=== PATIENT | male | born 1970 | race Caucasian/White ===

== ENCOUNTER 2021-07-29 09:30 | Emergency (ER) | payer OTHER ==
[2021-07-29] MEDS ORDERED: Ketorolac Tromethamine 30 MG/ML VIAL ONE (12:36)
[2021-07-29] MEDS ORDERED: Diazepam 10 MG/2 ML SYRINGE ONE (12:38)
== END 2021-07-29 13:00 | disposition home or self-care (01) ==
LOC: ERS 09:30
DX: M54.42 Lumbago with sciatica, left side (principal)
CPT/HCPCS: 72100; 96372; J1885; J3360

== ENCOUNTER 2021-07-31 20:45 | Inpatient (IN) | payer OTHER ==
[2021-07-31] MEDS ORDERED: Ondansetron PF 4 MG/2 ML Vial ONE (21:52)
[2021-07-31] MEDS ORDERED: Morphine 4 MG/ML VIAL ONE (21:52)
[2021-07-31 21:56] LABS: #Lymphocytes 1.8 thou/uL (1.20-3.40); #Monocytes 0.8 thou/uL (0.11-0.59); #Neutrophils 15.3 thou/uL (1.40-6.50); %Basophils 0.3 % (0.0-1.0); %Eosinophils 0.3 % (0.0-10.0); %Lymphocytes 9.8 % (21.0-51.0); %Monocytes 4.6 % (0.0-10.0); %Neutrophils 85.2 % (42.0-75.0); Hemoglobin 15.8 g/dL (14.0-18.0); Mean Corpuscular HGB CONC 33.6 g/dL (32.0-36.0); Mean Corpuscular Hemoglobin 30.3 pg (27.0-31.0); Mean Corpuscular Volume 90.2 fL (78.0-98.0); Mean Platelet Volume 6.8 fL (7.4-10.4); Platelet Count 211 thou/uL (130-400); RBC Distribution Width 11.9 % (11.5-14.5)
[2021-07-31 22:18] LABS: ALT (SGPT) 18 U/L (8-55); AST (SGOT) 11 U/L (5-34); Albumin 4.2 g/dL (3.5-5.0); Alkaline Phosphatase 82 U/L (40-110); Anion Gap 16 mmol/L (10-20); BUN (Urea Nitrogen) 18 mg/dL (8.4-25.7); Bilirubin, Total 0.7 mg/dL (0.2-1.2); Calc. Creatinine Clearance 0 mL/min (70-130); Calcium 8.9 mg/dL (7.8-10.44); Carbon Dioxide 23 mmol/L (22-29); Chloride 105 mmol/L (98-107); Globulin 2.7 g/dL (2.4-3.5); Glucose 136 mg/dL (70-105); Potassium 3.6 mmol/L (3.5-5.1); Protein, Total 6.9 g/dL (6.0-8.3); Sodium 140 mmol/L (136-145)
[2021-08-01] MEDS ORDERED: Acetaminophen 325 MG TAB PO PRN ×2 (01:00→01:40)
[2021-08-01] MEDS ORDERED: Ondansetron ODT 4 MG TAB SL PRN (01:00)
[2021-08-01] MEDS ORDERED: Ondansetron PF 4 MG/2 ML Vial IVP PRN ×2 (01:00→01:40)
[2021-08-01] MEDS: HYDROcodone/Acetaminophen 10/325 mg Tablet PO PRN ×4 (01:55→16:01)
[2021-08-01 04:04] VITALS: BMI 35.9
[2021-08-01] MEDS: Cyclobenzaprine 10 MG TAB PO SCH ×3 (07:36→21:07)
[2021-08-01 07:47] LABS: #Lymphocytes 2.5 thou/uL (1.20-3.40); #Monocytes 0.8 thou/uL (0.11-0.59); #Neutrophils 11.4 thou/uL (1.40-6.50); %Basophils 0.2 % (0.0-1.0); %Eosinophils 0.2 % (0.0-10.0); %Lymphocytes 16.9 % (21.0-51.0); %Monocytes 5.6 % (0.0-10.0); Hemoglobin 15.3 g/dL (14.0-18.0); Mean Corpuscular HGB CONC 33.8 g/dL (32.0-36.0); Mean Corpuscular Hemoglobin 31.2 pg (27.0-31.0); Mean Corpuscular Volume 92.3 fL (78.0-98.0); Platelet Count 226 thou/uL (130-400); RBC Distribution Width 12.3 % (11.5-14.5); Red Blood Cell (RBC) Count 4.91 mill/uL (4.70-6.10); White Blood Cell (WBC) Count 14.8 thou/uL (4.8-10.8)
[2021-08-01 08:00] LABS: Anion Gap 12 mmol/L (10-20); BUN (Urea Nitrogen) 18 mg/dL (8.4-25.7); Calc. Creatinine Clearance 147 mL/min (70-130); Calcium 9.2 mg/dL (7.8-10.44); Carbon Dioxide 28 mmol/L (22-29); Chloride 102 mmol/L (98-107); Glucose 100 mg/dL (70-105); Potassium 4.4 mmol/L (3.5-5.1); Sodium 138 mmol/L (136-145)
[2021-08-01] MEDS ORDERED: Lorazepam 2 MG/ML VIAL SLOW IVP SCH (08:30)
[2021-08-01 09:40] LABS: Amphetamine Not Detected (NotDetected); Barbiturates Screen Not Detected (NotDetected); Benzodiazepine Screen Detected (NotDetected); Cocaine Metabolite Screen Not Detected (NotDetected); Methadone Not Detected (NotDetected); Methamphetamine Not Detected (NotDetected); Opiate Screen Detected (NotDetected); Oxycodone Screen Not Detected (NotDetected); Phencyclidine (PCP) Not Detected (NotDetected); THC/Cannabinoid Screen Not Detected (NotDetected); Tricyclic Screen Not Detected (NotDetected)
[2021-08-01 12:19] LABS: SARS-CoV-2 PCR by NAA Not Detected (NotDetected)
[2021-08-01 13:51] LABS: Acetaminophen Less than 6.0 mcg/mL (10.0-30.0); Alcohol Less than 10 mg/dL (Less than 10); Salicylate Less than 8.0 mg/dL (15.0-30.0)
[2021-08-01] MEDS: Morphine 4 MG/ML VIAL SLOW IVP PRN (21:15)
[2021-08-02] MEDS: HYDROcodone/Acetaminophen 10/325 mg Tablet PO PRN ×4 (02:22→20:49)
[2021-08-02] MEDS: Morphine 4 MG/ML VIAL SLOW IVP PRN (05:35)
[2021-08-02] MEDS: Cyclobenzaprine 10 MG TAB PO SCH ×3 (10:32→20:47)
[2021-08-02] MEDS ORDERED: Iopamidol-M 300 61% 15 ML VIAL ONE (11:16)
[2021-08-02] MEDS ORDERED: Lidocaine 2% PF 5 ML VIAL ONE (11:16)
[2021-08-02] MEDS ORDERED: Dexamethasone 10 MG/ML VIAL ONE (11:16)
[2021-08-02] MEDS ORDERED: Bupivacaine 0.25% 10 ML VIAL ONE (11:16)
[2021-08-02] MEDS ORDERED: Dexamethasone 4 mg/ml Vial ONE (11:16)
[2021-08-03] MEDS: HYDROcodone/Acetaminophen 10/325 mg Tablet PO PRN ×2 (07:30→11:24)
[2021-08-03 07:34] VITALS: BP 152/95; TEMP 97.5
[2021-08-03] MEDS: Cyclobenzaprine 10 MG TAB PO SCH (08:24)
[2021-08-03] MEDS ORDERED: Gabapentin 100 MG CAP PO PRN (08:57)
== END 2021-08-03 11:31 | disposition home or self-care (01) | DRG 552 ==
LOC: ERS 20:45 → T4-A 23:39 → OBSVTOIN 08-02 12:43
PROVIDERS: ADMIT Internal Medicine; ATTEND Internal Medicine
PROC: 3E0R33Z Introduction of Anti-inflammatory into Spinal Canal, Percutaneous Approach (ICD-10-PCS; principal; 2021-08-02)
PROC: 3E0R3BZ Introduction of Anesthetic Agent into Spinal Canal, Percutaneous Approach (ICD-10-PCS; 2021-08-02)
DX: M51.16 Intervertebral disc disorders with radiculopathy, lumbar region (principal); Z20.822 Contact with and (suspected) exposure to COVID-19; M48.061 Spinal stenosis, lumbar region without neurogenic claudication; M51.17 Intervertebral disc disorders with radiculopathy, lumbosacral region; M48.07 Spinal stenosis, lumbosacral region; F41.9 Anxiety disorder, unspecified; D72.829 Elevated white blood cell count, unspecified; F41.1 Generalized anxiety disorder; E66.9 Obesity, unspecified; Z68.35 Body mass index [BMI] 35.0-35.9, adult; Z98.890 Other specified postprocedural states; Z90.89 Acquired absence of other organs
CPT/HCPCS: 36415; 72148; 80048; 80053; 80306; 80307; 85025; 87040; 96374; 96375; 96376; G0378; J1100; J2001; J2060; J2270; J2405; Q9967; S0020; U0003; U0005

== ENCOUNTER 2021-08-06 08:04 | Outpatient (CLI) | payer OTHER ==
[2021-08-06 09:37] LABS: Hemoglobin 17.1 g/dL (13.5-17.5); Mean Corpuscular HGB CONC 34.5 g/dL (32.0-36.0); Mean Corpuscular Hemoglobin 30.6 pg (27.0-33.0); Mean Corpuscular Volume 88.9 fl (81.2-95.1); Platelet Count 219 10x3/uL (150-450); RBC Distribution Width 12.6 % (11.5-14.5); Red Blood Cell (RBC) Count 5.58 10x6/uL (4.32-5.72); White Blood Cell (WBC) Count 11.9 10x3/uL (3.5-10.5)
[2021-08-06 09:58] LABS: PTT 25.7 sec (22.0-33.0)
[2021-08-06 10:55] LABS: Anion Gap 14 mmol/L (10-20); BUN (Urea Nitrogen) 23 mg/dL (8.4-25.7); Calc. Creatinine Clearance 0 mL/min (70-130); Calcium 9.6 mg/dL (7.8-10.44); Carbon Dioxide 28 mmol/L (22-29); Chloride 103 mmol/L (98-107); Glucose 94 mg/dL (70-105); Potassium 3.7 mmol/L (3.5-5.1); Sodium 141 mmol/L (136-145)
[2021-08-07 08:03] LABS: SARS-CoV-2 PCR by NAA Not Detected (NotDetected)
== END 2021-08-06 08:05 | disposition home or self-care (01) ==
LOC: LABBT 08:04
PROVIDERS: ATTEND Surgery
DX: Z01.818 Encounter for other preprocedural examination (principal); M51.16 Intervertebral disc disorders with radiculopathy, lumbar region; M48.062 Spinal stenosis, lumbar region with neurogenic claudication; Z20.822 Contact with and (suspected) exposure to COVID-19
CPT/HCPCS: 80048; 85027; 85610; 85730; 93005; 93010; U0003; U0005

== ENCOUNTER 2021-08-08 07:19 | Observation (INO) | payer OTHER ==
[2021-08-06 12:57] VITALS: BMI 35.9
[2021-08-08] MEDS ORDERED: ceFAZolin 2 GM/DEX 5% 100 ML BAG ONE (08:58)
[2021-08-08] MEDS ORDERED: Midazolam HCl 2 mg/2 ml Vial ONE (09:09)
[2021-08-08] MEDS ORDERED: Fentanyl 100 MCG/2 ML VIAL ONE ×3 (09:09→13:31)
[2021-08-08] MEDS ORDERED: Ondansetron PF 4 MG/2 ML Vial ONE (09:11)
[2021-08-08] MEDS ORDERED: Ketorolac Tromethamine 30 MG/ML VIAL ONE (09:11)
[2021-08-08] MEDS ORDERED: Labetalol HCl 100 MG/20 ML VIAL ONE (09:11)
[2021-08-08] MEDS ORDERED: Phenylephrine 10 MG/ML VIAL ONE (09:11)
[2021-08-08] MEDS ORDERED: PROPOFOL 200 MG/20 ML VIAL ONE (09:11)
[2021-08-08] MEDS ORDERED: Glycopyrrolate 0.2 MG/ML 5 ML SYRINGE ONE (09:11)
[2021-08-08] MEDS ORDERED: Dexamethasone 20 MG/5 ML VIAL ONE (09:11)
[2021-08-08] MEDS ORDERED: Lidocaine 1% PF 5 ML VIAL ONE (09:11)
[2021-08-08] MEDS ORDERED: Rocuronium Bromide 10 MG/ML (10ML VIAL) ONE (09:11)
[2021-08-08] MEDS ORDERED: Esmolol 100 MG/10 ML VIAL ONE (09:11)
[2021-08-08] MEDS ORDERED: Thrombin 5000 UNITS/5 ML VIAL ONE ×2 (09:13→11:18)
[2021-08-08] MEDS ORDERED: Scopolamine 1.5 mg/72 hour Patch ONE (10:30)
[2021-08-08] MEDS ORDERED: Ondansetron HCl/PF 4 MG/2 ML Vial IVP PRN (12:13)
[2021-08-08] MEDS ORDERED: Promethazine HCl 25 MG/ML VIAL IM PRN (12:13)
[2021-08-08] MEDS ORDERED: Promethazine HCl 25 MG/ML VIAL IVPB PRN (12:13)
[2021-08-08] MEDS ORDERED: Promethazine HCl 25 MG/ML VIAL ONE (13:16)
[2021-08-08] MEDS ORDERED: Acetaminophen/Codeine 30-300mg Tablet PO PRN (13:29)
[2021-08-08] MEDS ORDERED: tiZANidine HCl 4 MG TAB PO PRN (13:29)
[2021-08-08] MEDS ORDERED: Morphine 4 MG/ML VIAL SLOW IVP PRN (13:29)
[2021-08-08] MEDS ORDERED: Acetaminophen 325 MG TAB PO PRN (13:29)
[2021-08-08] MEDS ORDERED: ALPRAZolam 0.25 MG TAB PO PRN (13:31)
[2021-08-08] MEDS ORDERED: Promethazine HCl 12.5 MG in Sodium Chloride 0.9% 50 ML IVPB PRN (13:32)
[2021-08-08] MEDS: Sodium Chloride 0.9% 1,000 ML IV SCH (15:59)
[2021-08-08] MEDS: Gabapentin 100 MG CAP PO SCH ×2 (15:59→20:03)
[2021-08-08] MEDS: HYDROcodone/Acetaminophen 7.5/325 mg Tablet PO PRN (16:20)
[2021-08-08] MEDS: ceFAZolin Sodium/D5W 2 GM in Premix Bag 1 BAG IVPB SCH (17:35)
[2021-08-08] MEDS: traMADol HCl 50 MG TAB PO PRN (20:03)
[2021-08-09] MEDS: ceFAZolin Sodium/D5W 2 GM in Premix Bag 1 BAG IVPB SCH
[2021-08-09] MEDS: Sodium Chloride 0.9% 1,000 ML IV SCH (03:09)
[2021-08-09] MEDS: traMADol HCl 50 MG TAB PO PRN (04:17)
[2021-08-09 05:27] LABS: #Basophils 0.1 thou/uL (0.0-0.2); #Eosinphils 0.1 thou/uL (0.0-0.7); #Lymphocytes 2.2 thou/uL (1.20-3.40); #Monocytes 0.9 thou/uL (0.11-0.59); #Neutrophils 15.2 thou/uL (1.40-6.50); %Basophils 0.3 % (0.0-1.0); %Eosinophils 0.5 % (0.0-10.0); %Monocytes 4.7 % (0.0-10.0); %Neutrophils 82.5 % (42.0-75.0); Hemoglobin 14.6 g/dL (14.0-18.0); Mean Corpuscular HGB CONC 33.7 g/dL (32.0-36.0); Mean Corpuscular Hemoglobin 31.4 pg (27.0-31.0); Mean Corpuscular Volume 93.2 fL (78.0-98.0); Mean Platelet Volume 6.7 fL (7.4-10.4); Platelet Count 222 thou/uL (130-400); RBC Distribution Width 11.9 % (11.5-14.5); Red Blood Cell (RBC) Count 4.66 mill/uL (4.70-6.10); White Blood Cell (WBC) Count 18.5 thou/uL (4.8-10.8)
[2021-08-09 05:51] LABS: Anion Gap 12 mmol/L (10-20); BUN (Urea Nitrogen) 17 mg/dL (8.4-25.7); Calc. Creatinine Clearance 128 mL/min (70-130); Calcium 9.1 mg/dL (7.8-10.44); Carbon Dioxide 27 mmol/L (22-29); Chloride 101 mmol/L (98-107); Glucose 140 mg/dL (70-105); Potassium 4.7 mmol/L (3.5-5.1); Sodium 135 mmol/L (136-145)
[2021-08-09] MEDS: Gabapentin 100 MG CAP PO SCH (07:53)
[2021-08-09] MEDS: HYDROcodone/Acetaminophen 7.5/325 mg Tablet PO PRN ×2 (07:53)
[2021-08-09 11:38] VITALS: BP 121/76; TEMP 98.5
== END 2021-08-09 12:30 | disposition home or self-care (01) ==
LOC: SDC 07:19 → SURG A 13:29
PROVIDERS: ADMIT Surgery; ATTEND Surgery
PROC: 0SB20ZZ Excision of Lumbar Vertebral Disc, Open Approach (ICD-10-PCS; principal; 2021-08-08)
PROC: 01NB0ZZ Release Lumbar Nerve, Open Approach (ICD-10-PCS; 2021-08-08)
DX: M48.061 Spinal stenosis, lumbar region without neurogenic claudication (principal); M51.16 Intervertebral disc disorders with radiculopathy, lumbar region; M47.26 Other spondylosis with radiculopathy, lumbar region; Z79.899 Other long term (current) drug therapy
CPT/HCPCS: 36415; 76000; 80048; 85025; 96365; 96376; G0378; J1100; J1885; J2250; J2370; J2405; J2550; J2704; J3010; J3370; J7050

== ENCOUNTER 2021-09-25 15:13 | Inpatient (IN) | payer OTHER ==
[2021-09-25] MEDS ORDERED: Ondansetron PF 4 MG/2 ML Vial IVP PRN (16:10)
[2021-09-25] MEDS ORDERED: Acetaminophen 325 MG TAB PO PRN (16:10)
[2021-09-25] MEDS ORDERED: Acetaminophen/Codeine 30-300mg Tablet PO PRN (16:10)
[2021-09-25] MEDS ORDERED: ALPRAZolam 0.25 MG TAB PO PRN (16:18)
[2021-09-25] MEDS ORDERED: hydrALAZINE 20 MG/ML VIAL SLOW IVP PRN (16:19)
[2021-09-25] MEDS ORDERED: Morphine 4 MG/ML VIAL SLOW IVP PRN (16:21)
[2021-09-25 17:23] LABS: #Basophils 0.1 thou/uL (0.0-0.2); #Eosinphils 0.3 thou/uL (0.0-0.7); #Lymphocytes 2.2 thou/uL (1.20-3.40); #Monocytes 0.9 thou/uL (0.11-0.59); #Neutrophils 6.7 thou/uL (1.40-6.50); %Basophils 0.7 % (0.0-1.0); %Eosinophils 3.2 % (0.0-10.0); %Lymphocytes 21.6 % (21.0-51.0); %Monocytes 8.6 % (0.0-10.0); %Neutrophils 65.9 % (42.0-75.0); Hemoglobin 15.2 g/dL (14.0-18.0); Mean Corpuscular HGB CONC 34.5 g/dL (32.0-36.0); Mean Corpuscular Hemoglobin 30.9 pg (27.0-31.0); Mean Corpuscular Volume 89.6 fL (78.0-98.0); Mean Platelet Volume 6.9 fL (7.4-10.4); Platelet Count 201 thou/uL (130-400); RBC Distribution Width 11.9 % (11.5-14.5); Red Blood Cell (RBC) Count 4.92 mill/uL (4.70-6.10); White Blood Cell (WBC) Count 10.2 thou/uL (4.8-10.8)
[2021-09-25 17:34] LABS: PTT 31.8 sec (22.9-36.1); Prothrombin Time 13.3 sec (12.0-14.7)
[2021-09-25 17:51] LABS: Anion Gap 12 mmol/L (10-20); BUN (Urea Nitrogen) 11 mg/dL (8.4-25.7); Calc. Creatinine Clearance 0 mL/min (70-130); Calcium 9.4 mg/dL (7.8-10.44); Carbon Dioxide 29 mmol/L (22-29); Chloride 103 mmol/L (98-107); Glucose 97 mg/dL (70-105); Sodium 140 mmol/L (136-145)
[2021-09-25] MEDS: HYDROcodone/Acetaminophen 7.5/325 mg Tablet PO PRN (18:27)
[2021-09-25 18:30] VITALS: BMI 35.2
[2021-09-25 19:06] LABS: SARS-CoV-2 NAA Rapid Test Not Detected (NotDetected)
[2021-09-25] MEDS: Gabapentin 100 MG CAP PO SCH (21:48)
[2021-09-26] MEDS: HYDROcodone/Acetaminophen 7.5/325 mg Tablet PO PRN ×3 (05:58→23:57)
[2021-09-26] MEDS: Cyclobenzaprine 10 MG TAB PO PRN ×2 (05:58→18:03)
[2021-09-26] MEDS ORDERED: Scopolamine 1.5 mg/72 hour Patch ONE (08:44)
[2021-09-26] MEDS ORDERED: Fentanyl 100 MCG/2 ML VIAL ONE ×2 (11:40→14:57)
[2021-09-26] MEDS ORDERED: Dexmedetomidine 200 MCG/2 ML VIAL ONE (11:40)
[2021-09-26] MEDS ORDERED: ceFAZolin 2 GM/Dextrose 50 ML IVPB ONE (11:41)
[2021-09-26] MEDS ORDERED: PHENYLEPHRINE-NS 100 MCG/ML 10 ML SYRINGE ONE ×2 (11:53→13:05)
[2021-09-26] MEDS ORDERED: Rocuronium Bromide 10 MG/ML (10ML VIAL) ONE (11:53)
[2021-09-26] MEDS ORDERED: Ketorolac Tromethamine 30 MG/ML VIAL ONE (11:53)
[2021-09-26] MEDS ORDERED: Dexamethasone 20 MG/5 ML VIAL ONE (11:53)
[2021-09-26] MEDS ORDERED: Glycopyrrolate 0.2 MG/ML 5 ML SYRINGE ONE (11:53)
[2021-09-26] MEDS ORDERED: Ondansetron PF 4 MG/2 ML Vial ONE (11:53)
[2021-09-26] MEDS ORDERED: Lidocaine 1% PF 5 ML VIAL ONE (11:53)
[2021-09-26] MEDS ORDERED: PROPOFOL 200 MG/20 ML VIAL ONE (11:53)
[2021-09-26] MEDS ORDERED: ePHEDrine 50 MG/ML VIAL ONE (11:53)
[2021-09-26] MEDS ORDERED: Thrombin 5000 UNITS/5 ML VIAL ONE ×2 (12:47→13:19)
[2021-09-26] MEDS ORDERED: Phenylephrine 10 MG/ML VIAL ONE (13:04)
[2021-09-26] MEDS ORDERED: Dexamethasone 4 mg/ml Vial ONE ×2 (13:24→13:26)
[2021-09-26] MEDS ORDERED: Ketorolac Tromethamine 30 MG/ML VIAL IVP PRN (14:50)
[2021-09-26] MEDS ORDERED: Promethazine HCl 25 MG/ML VIAL IVPB PRN (14:56)
[2021-09-26] MEDS ORDERED: Ondansetron HCl/PF 4 MG/2 ML Vial IVP PRN (14:56)
[2021-09-26] MEDS ORDERED: Promethazine HCl 25 MG/ML VIAL IM PRN (14:56)
[2021-09-26] MEDS ORDERED: HYDROmorphone 2 MG/ML VIAL SLOW IVP PRN (14:56)
[2021-09-26] MEDS ORDERED: Morphine Sulfate 2 MG/ML SYRINGE SLOW IVP PRN (14:56)
[2021-09-26] MEDS ORDERED: PACU-Morphine 4MG/ML VIAL SLOW IVP PRN (14:56)
[2021-09-26] MEDS: Gabapentin 100 MG CAP PO SCH ×3 (16:17→19:49)
[2021-09-26] MEDS: Sodium Chloride 0.9% 1,000 ML IV SCH (16:18)
[2021-09-26] MEDS: ceFAZolin 2 GM/Dextrose 50 ML 2 GM in Premix Bag 1 BAG IVPB SCH (19:48)
[2021-09-26] MEDS: traMADol HCl 50 MG TAB PO PRN (21:48)
[2021-09-27] MEDS: Sodium Chloride 0.9% 1,000 ML IV SCH (03:40)
[2021-09-27] MEDS: ceFAZolin 2 GM/Dextrose 50 ML 2 GM in Premix Bag 1 BAG IVPB SCH (03:40)
[2021-09-27] MEDS: traMADol HCl 50 MG TAB PO PRN (04:18)
[2021-09-27] MEDS: Gabapentin 100 MG CAP PO SCH (07:49)
[2021-09-27] MEDS: HYDROcodone/Acetaminophen 7.5/325 mg Tablet PO PRN (07:50)
[2021-09-27 11:40] VITALS: BP 120/75; TEMP 99.5
== END 2021-09-27 11:39 | disposition home or self-care (01) | DRG 29 ==
LOC: SURG A 15:13
PROVIDERS: ADMIT Surgery; ATTEND Surgery
PROC: 00QT0ZZ Repair Spinal Meninges, Open Approach (ICD-10-PCS; principal; 2021-09-26)
DX: G96.09 Other spinal cerebrospinal fluid leak (principal); G97.82 Other postprocedural complications and disorders of nervous system; G96.198 Other disorders of meninges, not elsewhere classified; Y83.8 Other surgical procedures as the cause of abnormal reaction of the patient, or of later complication, without mention of misadventure at the time of the procedure; Z20.822 Contact with and (suspected) exposure to COVID-19; I10 Essential (primary) hypertension; F41.9 Anxiety disorder, unspecified; J30.2 Other seasonal allergic rhinitis; G43.909 Migraine, unspecified, not intractable, without status migrainosus; I95.89 Other hypotension; Z87.442 Personal history of urinary calculi; Z79.899 Other long term (current) drug therapy
CPT/HCPCS: 36415; 70450; 76000; 80048; 85025; 85610; 85730; 93005; 93010; 93970; C1776; J0690; J1100; J1885; J2370; J2405; J2704; J3010; J3370; J3490; U0002

== ENCOUNTER 2022-05-16 07:53 | Outpatient (CLI) | payer OTHER ==
[2022-05-16 10:43] LABS: #Basophils 0.1 10x3/uL (0.0-0.2); #Eosinphils 0.1 10x3/uL (0.0-0.5); #Monocytes 0.6 10x3/uL (0.0-1.1); #Neutrophils 6.3 10x3/uL (1.5-8.4); %Basophils 0.5 % (0.0-2.0); %Eosinophils 0.7 % (0.0-6.0); %Lymphocytes 25.3 % (18.0-47.0); %Monocytes 6.2 % (0.0-10.0); %Neutrophils 66.2 % (40.0-75.0); Mean Corpuscular HGB CONC 35.3 g/dL (32.0-36.0); Mean Corpuscular Hemoglobin 30.9 pg (27.0-33.0); Mean Corpuscular Volume 87.5 fl (81.2-95.1); Mean Platelet Volume 9.6 fl (7.4-10.4); Platelet Count 229 10x3/uL (150-450); RBC Distribution Width 12.9 % (11.5-14.5); Red Blood Cell (RBC) Count 5.18 10x6/uL (4.32-5.72); White Blood Cell (WBC) Count 9.5 10x3/uL (3.5-10.5)
== END 2022-05-16 07:54 | disposition home or self-care (01) ==
LOC: LABBT 07:53
PROVIDERS: ATTEND Orthopaedic Surgery Hand Surgery
DX: Z01.812 Encounter for preprocedural laboratory examination (principal); M67.431 Ganglion, right wrist; Z20.822 Contact with and (suspected) exposure to COVID-19
CPT/HCPCS: 85025; 87811

== ENCOUNTER 2022-05-20 06:32 | Day surgery (SDC) | payer OTHER ==
[2022-05-19 11:18] VITALS: BMI 35.9
[2022-05-20] MEDS ORDERED: Bacitracin Zinc Ointment 30 gm TUBE ONE (07:59)
[2022-05-20] MEDS ORDERED: Neomycin-Polymyxin 1 ML AMP ONE (07:59)
[2022-05-20] MEDS ORDERED: Bupivacaine PF 0.5% 30 ML VIAL ONE (07:59)
[2022-05-20] MEDS ORDERED: Propofol 1,000 MG/100 ML VIAL IV ONE (08:00)
[2022-05-20] MEDS ORDERED: Ketamine 50 MG/ML (10ML VIAL) ONE (08:09)
[2022-05-20] MEDS ORDERED: fentaNYL Citrate/PF 100 MCG/2 ML SYRINGE ONE (08:09)
[2022-05-20] MEDS ORDERED: CEFAZOLIN 2 GM VIAL ONE (08:13)
[2022-05-20] MEDS ORDERED: Sodium Chloride 0.9% 100 ML ONE (08:13)
[2022-05-20] MEDS ORDERED: PROPOFOL 200 MG/20 ML VIAL ONE (08:20)
[2022-05-20] MEDS ORDERED: Dexamethasone 20 MG/5 ML VIAL ONE (08:20)
[2022-05-20] MEDS ORDERED: Ketorolac Tromethamine 30 MG/ML VIAL ONE (08:20)
[2022-05-20] MEDS ORDERED: Ondansetron PF 4 MG/2 ML Vial ONE (08:20)
[2022-05-20] MEDS ORDERED: Betamet Acet/Betamet Na Ph 30 MG/5 ML VIAL ONE (08:50)
[2022-05-20] MEDS ORDERED: HYDROcodone/Acetaminophen 5/325 mg Tablet ONE (09:41)
== END 2022-05-20 10:16 | disposition home or self-care (01) ==
LOC: SDC 06:32
PROVIDERS: ATTEND Orthopaedic Surgery Hand Surgery
PROC: 0LB50ZZ Excision of Right Lower Arm and Wrist Tendon, Open Approach (ICD-10-PCS; principal; 2022-05-20)
PROC: 01N60ZZ Release Radial Nerve, Open Approach (ICD-10-PCS; 2022-05-20)
DX: D17.21 Benign lipomatous neoplasm of skin and subcutaneous tissue of right arm (principal)
CPT/HCPCS: 88304; J0690; J0702; J1100; J1885; J2405; J2704; J3490; S0020

== ENCOUNTER 2023-07-30 14:02 | Outpatient (CLI) | payer OTHER | END 2023-07-30 14:03 | disposition home or self-care (01) | LOC: SJX 14:02 → MRI 14:03 | PROVIDERS: ATTEND Family Medicine | DX: M54.16 Radiculopathy, lumbar region (principal); M96.1 Postlaminectomy syndrome, not elsewhere classified; M48.061 Spinal stenosis, lumbar region without neurogenic claudication; M25.78 Osteophyte, vertebrae; M89.38 Hypertrophy of bone, other site; Z98.890 Other specified postprocedural states | CPT/HCPCS: 72100; 72148 ==